=== PATIENT | male | born 1960 | race Two or more races ===

== ENCOUNTER 2025-01-22 11:31 | Outpatient (CLI) | payer OTHER ==
[~2025-01-22 11:31] MED LIST: BUMETANIDE1 MG PO; HUMALOG MI100 UNIT/2; PEPCID40 MG PO; SIMVASTATIN20 MG PO; [UNRECOGNIZED DRUG - OTHER]
[2025-01-22 12:06] LABS: PH,URINE 6.5 (5.0-8.0); URINE APPEARANCE Turbid; URINE BILIRRUBIN Negative (NEGATIVE); URINE BLOOD Moderate; URINE COLOR Dark Yellow; URINE GLUCOSE Negative (NEGATIVE); URINE KETONE Negative (NEGATIVE); URINE LEUKOCYTE Large; URINE NITRATE Negative; URINE UROBILINOGEN 0.2 E.U./dl
[2025-01-22 12:07] LABS: HEMATOCRIT 38.4 % (39.0-48.0); HEMOGLOBIN 13.1 g/dL (13-16.00); MEAN CELL VOLUME 88.5 fL (80.0-100.00); MEAN CORPUSCULAR HEMOGLOBIN 30.3 pg (27.00-32.0); MEAN CORPUSCULAR HGB CONC 34.2 g/dl (32.0-36.0); PLATELET COUNT 139 K/uL (150-450); RED BLOOD COUNT 4.34 M/uL (4.00-6.00); RED CELL DISTRIBUTION WIDTH 15.1 % (11.5-14.5)
[2025-01-22 12:10] LABS: URINE CAST 5.59 uL (0.0-1.40); URINE EPITHELIAL CELLS 9.6 uL (0.0-38.8); URINE RBC 164.2 uL (0.0-20.8)
[2025-01-22 12:41] LABS: URINE BACTERIA > 9821.5 uL (0.0-1933); URINE PROTEIN 300 (NEGATIVE); URINE WBC > 5548.3 uL (0.0-23.2)
[2025-01-22 12:42] LABS: URINE CRYSTALS FEW /HPF
[2025-01-22 12:57] LABS: INR 1.05; PARTIAL THROMBOPLASTIN TIME 29.3 SECONDS (22.0-34.0); PROTHROMBIN TIME 11.4 SECONDS (9.0-11.5)
[2025-01-22 13:13] LABS: CALCIUM 10.7 mg/dL (8.5-10.1); GFR 12.45; POTASSIUM 3.78 mEq/L (3.5-5.1)
[2025-01-22 13:22] LABS: CREATININE SERUM 4.74 mg/dL (0.70-1.30)
[2025-01-23] MEDS ORDERED: MIRALAX17 GM PO (09:34)
[2025-01-23] MEDS ORDERED: TYLENOL ARTHRI650 MG PO (09:34)
[2025-01-23] MEDS ORDERED: TRAMADOL HCL50 MG PO (09:34)
== END 2025-01-22 11:39 | disposition home or self-care (01) ==
LOC: LAB 11:31
PROVIDERS: ATTEND Surgery
DX: I10 Essential (primary) hypertension (principal); R10.9 Unspecified abdominal pain

== ENCOUNTER 2025-01-23 08:26 | Day surgery (SDC) | payer OTHER ==
[2025-01-23] MEDS ORDERED: TRAMADOL HCL50 MG PO (09:34)
[2025-01-23] MEDS ORDERED: MIRALAX17 GM PO (09:34)
[2025-01-23] MEDS ORDERED: TYLENOL ARTHRI650 MG PO (09:34)
[2025-01-23] MEDS ORDERED: CEFAZOLIN SODIUM 1,000 MG VIAL ONE (10:38)
[2025-01-23] MEDS ORDERED: BUPIVACAINE HCL 30 ML VIAL IJ ONE (13:00)
[2025-01-23] MEDS ORDERED: MORPHINE SULFATE 4 MG/ML VIAL IV ONE (16:00)
[2025-01-23] MEDS ORDERED: ENALAPRILAT DIHYDRATE 1.25 MG/ML VIAL IV ONE ×2 (16:20→16:38)
== END 2025-01-23 17:00 | disposition home or self-care (01) ==
LOC: CIR.AMB 08:26
PROVIDERS: ATTEND Surgery
DX: K40.30 Unilateral inguinal hernia, with obstruction, without gangrene, not specified as recurrent (principal); I10 Essential (primary) hypertension; E11.9 Type 2 diabetes mellitus without complications; E78.5 Hyperlipidemia, unspecified; Z95.0 Presence of cardiac pacemaker
CPT/HCPCS: 49507; C1781